=== PATIENT | male | born 1985 | race Caucasian/White ===

== ENCOUNTER 2017-11-19 22:12 | Emergency (ER) | payer SELFPAY ==
[2017-11-19] MEDS ORDERED: Lidocaine 2% 10 ML INJ ONE (22:39)
[2017-11-19] MEDS ORDERED: Adacel (T-DAP) 0.5 ML VIAL ONE (23:11)
[2017-11-19] MEDS ORDERED: Bacitracin Zinc 1 Packet ONE (23:50)
== END 2017-11-20 00:01 | disposition home or self-care (01) ==
LOC: SCSER 22:12
DX: L02.416 Cutaneous abscess of left lower limb (principal); L03.116 Cellulitis of left lower limb; F17.210 Nicotine dependence, cigarettes, uncomplicated
CPT/HCPCS: 10060; 90471; 90715

== ENCOUNTER 2019-04-25 09:12 | Emergency (ER) | payer SELFPAY ==
[2019-04-25] MEDS ORDERED: Lidocaine 1% 20 ML MDV ONE (09:33)
[2019-04-25] MEDS ORDERED: Sulfameth/Trimethoprim DS 800-160mg TAB ONE ×2 (09:37→09:38)
[2019-04-25] MEDS ORDERED: Amoxicillin/Potassium Clav 875 MG TAB ONE ×2 (09:37→09:38)
== END 2019-04-25 10:05 | disposition home or self-care (01) ==
LOC: SCSER 09:12
DX: L02.413 Cutaneous abscess of right upper limb (principal); F17.210 Nicotine dependence, cigarettes, uncomplicated
CPT/HCPCS: 10060; 36416; J2001